=== PATIENT | male | born 2005 | race Caucasian/White ===

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

== ENCOUNTER 2024-10-05 14:02 | Emergency (ER) | payer BC, SELFPAY ==
[2024-10-05 14:02] VITALS: BP 147/94; PULSE 86; RESP 18; TEMP 37.1; O2SAT 100; BMI 39.3
--- NOTE | 2024-10-05 14:19 | EDS_ITS ---
HPI History of Present Illness Chief Complaint: Back Informant: patient and spouse/S.O. Narrative Narrative: 19-year-old male presenting to the emergency room with low back pain. Patient states that 2 days ago he bent down to get something underneath his desk and felt something pull in his right low back. Since that time he had significant pain in the back with movement particularly bending over. States is painful for him to put his pants on and socks. He notes a history of ankylosing spondylitis. He sees someone in [place] for that. He states he gets an injection about every 2 weeks. He has never had any back surgery. He denies any radicular symptoms to the leg. He notes that this pulling sensation goes from the low back into the right anterior thigh. He denies any bowel or bladder changes. No fevers no rashes. He denies abdominal pain. [facility] Medical History (Updated 10/05/24 @ 14:[address] Amaury Pacheco DO) Ankylosing spondylitis Home Medications ?Medication ?Instructions ?Recorded ?Last Taken ?Type diazepam 5 mg tablet 5 mg PO Q8 PRN Muscle Spasm #10 10/05/24 Unknown Rx tabs ketorolac 10 mg tablet 10 mg PO Q8H PRN pain #15 ta bs 10/05/24 Unknown Rx oxycodone-acetaminophen 5 mg-325 1 tab PO Q6H PRN PRN Pain 3 days 10/05/24 Unknown Rx mg tablet #12 TABLETS Allergy/AdvReac Type Severity Reaction Status Date / Time No Known Allergies Allergy Verified 10/05/24 14:02 Surgical History History of cholecystectomy Social History Smoking Status: Never smoker ROS ROS ED Constitutional Constitutional ED: Denies chills, fever(s) or weight loss Eyes Eyes: Denies change in vision or diplopia ENT ENT ED: Denies ear pain, rhinorrhea or sore throat Cardiovascular Cardiovascular: Denies chest pain, orthopnea, palpitations or racing heartbeat Respiratory/Chest Respiratory/Chest: Denies cough, dyspnea or orthopnea Gastrointestinal Gastrointestinal: Denies abdominal pain, diarrhea, nausea or vomiting Genitourinary Genitourinary ED: Denies dysuria, hematuria or urinary frequency Musculoskeletal Musculoskeletal: Reports back pain; Denies arthralgias or myalgias Integumentary Denies abscess or rash Neurologic Neurologic: Denies headache(s) or weakness Psychiatric Psychiatric: Denies anxiety, depression, suicidal ideation or suicidal thoughts Endocrine Endocrinology: Denies polydipsia, polyphagia or polyuria Allergic/Immunologic Allergic/Immunologic ED: Denies mouth swelling, tongue swelling or urticaria EXAM Physical Exam Const Vital Signs: 10/05/24 14:02 Temperature 98.8 F Temperature Source Oral Pulse Rate 86 Respiratory Rate 18 Blood Pressure 147/94 H Blood Pressure Mean 111 Pulse Ox 100 Oxygen Delivery Method Room Air Positive well nourished, well developed and obese General Appearance ED: well developed and NAD Nutritional Appearance: obese HEENT Reports normocephalic, head/scalp atraumatic and moist mucous membranes Eyes PERRL and EOMs intact bilaterally Neck no lymphadenopathy, supple and no JVD Resp normal respiratory effort and clear to auscultation bilaterally Cardio regular rate, regular rhythm and no murmurs GI normal to inspection, nondistended, normoactive bowel sounds and non-tender Palpation: soft Back/Spine no CVA tenderness Back/Spine Narrative: Painful range of motion of the low back. Extremity normal to inspection General Extremety ED: Negative for edema General Extremity: Negative for edema Neuro oriented x3 and CN's II-XII intact bilaterally Neuro Narrative: Neurovascular intact of the bilateral lower extremities. Good pulses distally. Sensorium / Orientation: alert Motor Exam: strength 5/5 throughout Deep Tendon Reflexes: Rt Patellar (L4): 2+, Lt Patellar (L4): 2+, Rt Ankle (S1): 2+ and Lt Ankle (S1): 2+ Deep Tendon Reflexes Back: Rt Patellar (L4): 2+, Lt Patellar (L4): 2+, Rt Ankle (S1): 2+ and Lt Ankle (S1): 2+ Psych mental status grossly normal Mood & Affect: Negative for depressed or tearful Skin no rashes or lesions noted and no wounds MDM MDM MDM Narrative Medical decision making narrative: Differential diagnosis includes but not limited to lumbar myofascial strain muscle spasm disc herniation lumbar radiculopathy spinal stenosis fracture My independent interpretation 3 view lumbar spine films is no acute process. Patient received a dose of Dilaudid ketorolac and diazepam. He will be discharged home on ketorolac diazepam and a few Percocet. Instructions for heat oral hydration gentle stretching follow-up PCP 3 to 5 days if not improving return if worsening. At the time of discharge she is neurologically intact. History & Record Review Discussion w/independent historian: Patient Radiography Diagnostic Testing: Clinical Impression(s) from Imaging Studies Lumbar Spine X-Ray 10/05/24 14:33 IMPRESSION: NEGATIVE LUMBAR SPINE. Reading Location: [facility] Discharge Plan Triage Chief Complaint: Back ED Provider: Amaury Pacheco Dx/Rx/DC Orders Clinical Impression: Acute lumbar myofascial strain, Lumbar paraspinal muscle spasm, Acute low back pain, Ankylosing spondylitis Instructions: ED Back Spasm, No Trauma Prescriptions: New diazepam 5 mg tablet 5 mg PO Q8 PRN (Reason: Muscle Spasm) Qty: 10 0RF oxycodone-acetaminophen 5-325 mg tablet 1 tab PO Q6H PRN PRN (Reason: Pain) 3 Days Qty: 12 0RF ketorolac 10 mg tablet 10 mg PO Q8H PRN (Reason: pain) Qty: 15 0RF Rx Instructions: maximum total duration of 5 days from all oral, intranasal, or parenteral formulations Primary Care Provider: Hayder Roach Referrals: Hayder Roach MD [Primary Care Provider] - 3-5 Days if not improving Print Language: [place] Disposition Disposition: Home, Self Care
[2024-10-05] MEDS: diazePAM 5 MG Tablet PO (14:27)
[2024-10-05] MEDS: Ketorolac 60 MG/2 ML Vial IM (14:27)
[2024-10-05] MEDS: HYDROmorphone 1 MG/ML Syringe IM (14:28)
--- NOTE | 2024-10-05 14:33 | RAD_ITS ---
PROCEDURE: LUMBAR SPINE 2 OR 3 VIEWS 10/05/2024 REASON FOR EXAM: 19-year-old male, low back pain. TECHNIQUE: 3 view(s) of the lumbar spine COMPARISON: None. FINDINGS: Visualization is limited by motion artifact. Vertebrae: No obvious acute fracture. The vertebral body heights are maintained. Discs: Disc space heights are preserved. Alignment: No traumatic listhesis. Other: The bilateral hip and SI joints are maintained. The visualized bowel loops are nondilated. RAD/Lumbar Spine 2 or 3 Views IMPRESSION: NEGATIVE LUMBAR SPINE. Reading Location: [id number]
[2024-10-05 14:59] VITALS: BP 138/73; PULSE 81; RESP 18; TEMP 36.6; O2SAT 100
== END 2024-10-05 15:06 | disposition home or self-care (01) ==
LOC: ED 15:04
PROVIDERS: Emergency Provider Emergency Medicine; PCP Family Medicine; Visit Provider Emergency Medicine
DX: S39.012A Strain of muscle, fascia and tendon of lower back, initial encounter (principal); M45.9 Ankylosing spondylitis of unspecified sites in spine; M62.830 Muscle spasm of back; X50.1XXA Overexertion from prolonged static or awkward postures, initial encounter; E66.9 Obesity, unspecified
CPT/HCPCS: 72100; 96372; 99282

== ENCOUNTER 2025-01-06 08:32 | Emergency (ER) | payer BC, SELFPAY ==
[2025-01-06 08:32] VITALS: BP 152/96; PULSE 93; RESP 16; TEMP 35.6; O2SAT 99; BMI 42.0
[2025-01-06] MEDS: 0.9% Normal Saline (1000mL) 1,000 ML 999 ML IV (09:08)
--- NOTE | 2025-01-06 09:12 | EX.ED.DYSGE1 ---
HPI History of Present Illness Chief Complaint: GI Bleed Narrative Narrative: Chief complaint and HPI: Diarrhea. 19-year-old male with past medical history of arthritis presents for evaluation of diarrhea. Patient states last week he traveled to [place]. States he has now developed diarrhea. Patient states there is occasional bright red blood on the toilet paper as well as in the bowl. He went to an urgent care who recommended him be evaluated in the emergency department. He endorses occasional abdominal pain. Denies any fever, chills, shortness of breath, chest pain, nausea, vomiting, dysuria. Denies any frequent alcohol ingestion. Denies any rectal pain. Denies any recent antibiotic use. Review of systems: See HPI Medications: As listed on the chart Allergies: As listed on the chart PFSH: Per chart Vital signs: As listed on the chart. Reviewed. Physical exam: Gen: A&O x3, NAD Head: Normocephalic, atraumatic Eyes: No sclera icterus, conjunctiva clear ENT: Moist mucous membranes Neck: Trachea midline, No JVD CV: RRR, no murmurs, no peripheral edema Resp: Lungs CTA BL, no w/r/c GI: Abd soft, non-distended, non-tender, no r/r/g Rectal: Nonthrombosed external hemorrhoids. Normal tone and sensation. No masses, fluctuance, or tenderness. No pain out of proportion. Stool on gloved finger brown. : No CVA tenderness Musc: Full ROM, no deformity Skin: Warm, dry Neuro: Alert, oriented, grossly intact, sensation intact Psych: Cooperative, appropriate mood and affect [facility] Medical History (Updated 01/06/25 @ 10:[address] Franco Marti, ) Ankylosing spondylitis Home Medications ?Medication ?Instructions ?Recorded ?Last Taken ?Type adalimumab-adaz 40 mg/0.4 mL mg subcut 01/06/25 Unknown History subcutaneous pen injector (Hyrimoz(CF) Pen) Allergy/AdvReac Type Severity Reaction Status Date / Time No Known Allergies Allergy Verified 01/06/25 08:32 Surgical History History of cholecystectomy Social History Smoking Status: Never smoker EXAM Physical Exam Const Vital Signs: 01/06/25 08:32 Temperature 96.0 F L Temperature Source Temporal Pulse Rate 93 Respiratory Rate 16 Blood Pressure 152/96 H Blood Pressure Mean 114 Pulse Ox 99 Oxygen Delivery Method Room Air MDM MDM MDM Narrative Medical decision making narrative: 19-year-old male with past medical history of arthritis presents for evaluation of diarrhea. Patient states last week he traveled to [place]. States he has now developed diarrhea. Patient states there is occasional bright red blood on the toilet paper as well as in the bowl. Denies any fever, chills, nausea, vomiting. Differential diagnosis includes but is not limited to traveler's diarrhea, gastroenteritis, electrolyte abnormality, GAURANG, dehydration, hemorrhoidal bleeding. Suspect less likely inflammatory bowel disease or bacterial infection such as C. difficile or Salmonella given patient is not having any fever, chills, nausea, vomiting, severe abdominal pain. NS bolus, laboratory workup ordered including stool cultures. I do not think any abdominal imaging is needed at this time. Patient is nontender on physical exam of the abdomen. Will get C. difficile and stool cultures if patient develops diarrhea here in the emergency department. CBC without leukocytosis or anemia. Platelets unremarkable. CMP unremarkable without electrolyte abnormality, GAURANG, transaminitis. Lipase unremarkable. Lactic acid unremarkable. Stool occult negative. Patient has not had a bowel movement here in the emergency department. He states that he does not feel like he needs to have one. Patient's symptoms are likely secondary to traveler's diarrhea with hemorrhoidal bleeding. Recommend following up with primary care physician. Return precautions explained. He confirmed understanding the plan. Impression: 1. Diarrhea, suspect travelers 2. Episodic hemorrhoidal bleeding Lab Data Labs: Laboratory Results - last 24 hr 01/06/25 01/06/25 08:45 09:00 WBC 9.0 RBC 4.99 Hgb 14.7 Hct 44.2 MCV 88.6 MCH 29.5 MCHC 33.3 RDW Std Deviation 41.1 RDW Coeff of Stevan 12.6 Plt Count 321 MPV 8.9 Immature Gran % (Auto) 0.400 Neut % (Auto) 62.6 Lymph % (Auto) 25.7 Real % (Auto) 9.3 Eos % (Auto) 1.6 Baso % (Auto) 0.4 Absolute Neuts (auto) 5.7 Absolute Lymphs (auto) 2.32 Nucleated RBC % 0 Sodium 140 Potassium 3.9 Chloride 105 Carbon Dioxide 23.6 Anion Gap 12 BUN 13 Creatinine 0.76 Estim Creat Clear Calc 223.56 Est GFR (MDRD) Non-Af 131 BUN/Creatinine Ratio 16.9 Glucose 99 Lactic Acid 1.1 Calcium 9.6 Total Bilirubin 0.29 AST 25 ALT 42 Alkaline Phosphatase 102 Total Protein 7.7 Albumin 4.5 Globulin 3.2 Albumin/Globulin Ratio 1.4 Lipase 35 Discharge Plan Triage Chief Complaint: GI Bleed ED Provider: Franco Marti Dx/Rx/DC Orders Clinical Impression: Diarrhea, Bleeding external hemorrhoids Instructions: Treating Hemorrhoids: Self-Care, Understanding Hemorrhoids, ED Traveler's Diarrhea (Adult) Prescriptions: No Action adalimumab-adaz [Hyrimoz(CF) Pen] 40 mg/0.4 mL pen injector SUBCUT Patient Comments: [NO ORIGINAL SIG] Primary Care Provider: Hayder Roach Referrals: Hayder Roach MD [Primary Care Provider] - 3-5 Days Activity Restrictions/Additional Instructions: Follow-up with primary care physician. Return back to the ED if symptoms change or worsen. Print Language: [place]olan Disposition Disposition: Home, Self Care
[2025-01-06 09:16] LABS: Absolute Lymphocyte Count 2.32 X10^3/uL (0.83-4.51); Absolute Neutrophil Count 5.7 X10^3/uL (2.0-7.7); Basophil# 0.04 X10^3/uL; Basophil% 0.4 % (0-1); Eosinophil# 0.14 X10^3/uL; Eosinophils% 1.6 % (0-5); Hematocrit 44.2 % (40-54); Hemoglobin 14.7 g/dL (13.0-16.5); Lymphocyte # 2.32 X10^3/ul (0.83-4.51); Lymphocyte % 25.7 % (19-41); Mean Corp Hgb Conc 33.3 g/dL (32-36); Mean Corpuscular Hgb 29.5 pg (27.0-32.0); Mean Corpuscular Volume 88.6 fL (80-94); Mean Platelet Vol. 8.9 fl (6.2-12.0); Monocyte# 0.84 X10^3/uL; Monocyte% 9.3 % (0-10); NRBC Flagged by Analyzer 0 % (0-5); Neutrophil # 5.65 X10^3/uL (2.7-7.7); Neutrophil % 62.6 % (47-70); Platelet Count 321 K/mm3 (150-450); RBC Distribution Width CV 12.6 % (11.6-14.6); RBC Distribution Width SD 41.1 fl (35.1-43.9); Red Blood Count 4.99 M/mm3 (4.6-6.2)
[2025-01-06 09:51] LABS: Lactic Acid 1.1 mmol/L (0.0-2.0)
[2025-01-06 09:51] LABS: ALB/GLOB Ratio 1.4 RATIO (0.9-2.4); AST(SGOT) 25 U/L (<=37); Alanine Aminotransfer ALT/SGPT 42 U/L (<=46); Albumin, Serum 4.5 g/dL (3.5-5.0); Alkaline Phosphatase 102 U/L (40-129); Anion Gap 12 (5-15); BUN 13 mg/dL (4-19); BUN/Creat Ratio 16.9 RATIO (10-20); Calcium,Total 9.6 mg/dL (7.6-11.0); Carbon Dioxide 23.6 mmol/L (21.0-32.0); Chloride 105 mmol/L (98-108); Creatinine, Serum 0.76 mg/dL (0.70-1.20); EST Glomerular Filtration Rate 131 (>60); Estimated Creatinine Clearance 223.56 ml/min (50-250); Globulin 3.2 g/dL (2.2-4.2); Glucose 99 mg/dL (70-99); Lipase 35 U/L (13-75); Potassium 3.9 mmol/L (3.3-5.1); Protein, Total 7.7 g/dL (5.9-8.4); Sodium Level 140 mmol/L (133-145); Total Bilirubin 0.29 mg/dL (0.00-1.30)
[2025-01-06 10:12] VITALS: BP 152/96; PULSE 93; RESP 16; TEMP 35.6; O2SAT 99
== END 2025-01-06 10:17 | disposition home or self-care (01) ==
PROVIDERS: Emergency Provider Surgery; PCP Family Medicine; Visit Provider Surgery
DX: R19.7 Diarrhea, unspecified (principal); M45.9 Ankylosing spondylitis of unspecified sites in spine; K64.4 Residual hemorrhoidal skin tags; Z90.49 Acquired absence of other specified parts of digestive tract; Z79.899 Other long term (current) drug therapy
CPT/HCPCS: 80053; 82274; 83605; 83690; 85025; 96360; 99283; A4216